=== PATIENT | female | born 1995 | race Caucasian/White ===

== ENCOUNTER → 2019-07-16 10:43 | Outpatient (BNVA) | payer SELFPAY | PROVIDERS: Family Provider Family Medicine; PCP Family Medicine; Visit Provider Specialist | DX: G40.909 Epilepsy, unspecified, not intractable, without status epilepticus (principal); F17.210 Nicotine dependence, cigarettes, uncomplicated | CPT/HCPCS: 99213 ==

== ENCOUNTER → 2019-10-30 10:30 | Outpatient (BNVA) | payer SELFPAY | PROVIDERS: Family Provider Family Medicine; PCP Family Medicine; Visit Provider Family Medicine | DX: N92.6 Irregular menstruation, unspecified (principal) | CPT/HCPCS: 82672; 83001; 84144; 84403 ==

== ENCOUNTER → 2020-06-03 15:41 | Outpatient (BNVA) | payer OTHER, SELFPAY | PROVIDERS: Family Provider Family Medicine; PCP Family Medicine; Visit Provider Nurse Practitioner Family | DX: J06.9 Acute upper respiratory infection, unspecified (principal); Z20.828 Contact with and (suspected) exposure to other viral communicable diseases | CPT/HCPCS: 87635 ==

== ENCOUNTER → 2020-10-02 15:48 | Outpatient (BNVA) | payer SELFPAY | PROVIDERS: Family Provider Family Medicine; PCP Family Medicine; Visit Provider Nurse Practitioner Family | DX: N92.6 Irregular menstruation, unspecified (principal); R10.30 Lower abdominal pain, unspecified; Z68.42 Body mass index [BMI] 45.0-49.9, adult; F17.210 Nicotine dependence, cigarettes, uncomplicated | CPT/HCPCS: 81000; 81025 ==

== ENCOUNTER → 2020-11-24 09:37 | Outpatient (BNVA) | payer MEDICAID, SELFPAY | PROVIDERS: Family Provider Family Medicine; PCP Family Medicine; Visit Provider Obstetrics & Gynecology | DX: N93.9 Abnormal uterine and vaginal bleeding, unspecified (principal); N91.3 Primary oligomenorrhea | CPT/HCPCS: 83001; 84146; 84443; 85025 ==

== ENCOUNTER → 2020-12-08 14:25 | Outpatient (BNVA) | payer MEDICAID, SELFPAY | PROVIDERS: Family Provider Family Medicine; PCP Family Medicine; Visit Provider Obstetrics & Gynecology | DX: N83.201 Unspecified ovarian cyst, right side (principal) | CPT/HCPCS: 76830 ==

== ENCOUNTER → 2020-12-16 16:18 | Outpatient (BNVA) | payer MEDICAID, SELFPAY | PROVIDERS: Family Provider Family Medicine; PCP Family Medicine | DX: M79.641 Pain in right hand (principal); S69.91XA Unspecified injury of right wrist, hand and finger(s), initial encounter; X58.XXXA Exposure to other specified factors, initial encounter | CPT/HCPCS: 73130 ==

== ENCOUNTER 2020-12-30 11:14 | Emergency (ER) | payer MEDICAID, SELFPAY ==
[2020-12-30 11:49] VITALS: BP 138/86; PULSE 69; RESP 20; TEMP 36.8; O2SAT 100; BMI 44.9
[2020-12-30 12:00] VITALS: BP 141/95; PULSE 83; RESP 16; O2SAT 99
--- NOTE | 2020-12-30 12:03 | W.ED.GENADLT ---
HPI - General Adult General: Chief complaint: Vaginal Bleeding Stated complaint: vaginal bleeding Time Seen by Provider: 12/30/20 11:59 History of Present Illness: HPI narrative: This patient is a 25-year-old female who presents to the emergency department complaint of vaginal bleeding. Patient states her periods have always been abnormal and her last period was in October. Patient states she started her period this morning went to the bathroom put in a tampon by the time she got back to bed the blood was coming around the tampon and going down her legs. She went back to the bathroom to change that tampon and she said it was just like a fluid. 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 Way for her abnormal periods. Patient does not appear to be acutely anemic but will check and evaluate for anemia with blood evaluation with CBC. Evaluate and treat further as needed. Onset (ago): hour(s) Severity: mild Associated symptoms: Deny chest pain, dyspnea, headache(s), nausea, rash, palpitations or vomiting Review of Systems General: Reports: 10 or more systems reviewed and unremarkable except in HPI and below Const: Denies: fever(s), chills, body aches or fatigue Eyes: Denies: change in vision or blurry vision ENMT: Denies: throat pain, hoarseness or mouth pain Card: Denies: chest pain, palpitations, irregular heart rhythm, edema, swelling of feet/ankles or lightheadedness Resp: Denies: dyspnea, productive cough, non-productive cough, wheezing or pain on inspiration GI: Denies: abdominal pain, nausea or vomiting : Reports: vaginal bleeding and irregular period; Denies: flank pain, difficulty voiding, dysuria, urinary frequency, urinary urgency or urinary hesitancy Musc: Denies: neck pain, back pain, extremity pain, extremity swelling, joint pain, joint swelling, joint redness, joint warmth or limited range of motion Skin/Breast: Denies: rash, pruritus, erythema or skin tenderness Neuro: Denies: headache(s), numbness in extremities or weakness in extremities Psych: Denies: anxiety or depression PFS ED PFSH: Medical History Migraine Seizures Surgical History History of cholecystectomy Family History Grandmother Diabetes maternal Hyperlipidemia maternal Hypertension maternal Stroke maternal Heart disease maternal Breast cancer great grandmother, onset unknown Mother Hypertension Heart disease Uterine cancer, Onset Age: 28 Ovarian cancer, Onset Age: 28 Denies family history of Colon cancer Clotting disorder Anesthesia complication Bleeding disorder Thyroid condition Social History Smoking and tobacco status: current every day smoker cigarettes [ Other cigarette details: smokes on weekends only ] Second hand smoke exposure: Yes Smoking risk assessment/counseling performed?: Yes Alcohol intake: current Alcohol intake frequency: holidays/special occasions only Alcohol type: wine and hard liquor Desire information about alcohol rehabilitation?: No Counseling given: Yes Desire information about substance/drug rehabilitation?: No Counseling given: Yes Other details last substance use: last used methamphetamines Adopted: Yes Caregiver/support person: No Lives independently: Yes Household members: significant other Housing: House Marital status: Single Number of children: 0 Highest education level completed: High School Graduate service: No Current occupational status: employed History of recent travel: No Physical Exam Const: COMMON NORMALS: no acute distress, average body habitus, patient oriented x3, no limitations, healthy appearing, alert and well nourished HENMT: COMMON NORMALS: normocephalic, atraumatic, hearing grossly normal bilaterally, external ears normal, EAC's normal, TM's normal bilaterally, Normal external nose present, Normal nasal mucous membranes and turbinates present, moist oral mucous membranes, oropharynx normal, dentition normal and gingiva normal HEAD & SCALP: normocephalic and atraumatic NOSE: Normal external nose present and Normal nasal mucous membranes and turbinates present EXTERNAL EAR: Yes external ears normal EXTERNAL AUDITORY CANAL: EAC's normal TYMPANIC MEMBRANE: TM's normal bilaterally Neck/C-Spine: COMMON NORMALS: full ROM, no lymphadenopathy, supple, no meningeal signs, no JVD, Thyroid normal and No carotid bruits THYROID: Thyroid normal Chest: COMMONS NORMALS: normal inspection of the chest, normal palpation of entire chest wall, normal inspection of the breasts and normal palpation of the breasts Breast/axilla inspection: Yes normal inspection of the breasts BREAST/AXILLA PALPATION: Yes normal palpation of the breasts Resp: COMMON NORMALS: normal respiratory effort, No retractions, No use of accessory muscles, clear to auscultation bilaterally and percussion normal AUSCULTATION: clear to auscultation bilaterally PERCUSSION: percussion normal Cardio: COMMON NORMALS: no JVD, regular rate, regular rhythm, S1 normal heart sound present, S2 normal heart sound present, No gallops present (Cardio), No clicks present (Cardio), No murmurs present (Cardio), No rub (Cardio) and Peripheral pulses 2+ throughout RATE: regular rate RHYTHM: regular rhythm HEART SOUNDS: S1 normal heart sound present and S2 normal heart sound present PERIPHERAL PULSES: Peripheral pulses 2+ throughout GI: COMMON NORMALS: Normal to inspection, nondistended, normoactive bowel sounds present, Soft to palpation, non-tender, No hepatosplenomegaly present, no masses and no bruits PALPATION: Yes Soft to palpation and Yes No hepatosplenomegaly present : COMMON NORMALS: Yes no CVA tenderness, Yes normal external appearance, Yes normal appearance of the vagina, Yes normal appearance of the cervix, Yes normal bimanual exam, Yes No adnexal tenderness and Yes no masses BLADDER/KIDNEY EXAM: Yes no CVA tenderness BIMANUAL EXAM - VAGINA & UTERUS: Yes normal bimanual exam Back/Pelvis: COMMON NORMALS: no CVA tenderness, thoracic and lumbar spine normal to inspection, no thoracic nor lumbar tenderness, thoraco-lumbar ROM normal and straight leg raise negative bilaterally Extremity: COMMON NORMALS: normal to inspection, full ROM, capillary refill normal, no joint enlargement, no clubbing, cyanosis or edema, no calf tenderness and no pedal edema Neuro: COMMON NORMALS: patient oriented x3 SENSORIUM/ORIENTATION: Yes alert MENINGEAL SIGNS: Yes no meningeal signs Course Reevaluation(s): Reevaluation #1: Negative evaluation in the emergency department for any acute findings. Patient has a long history of abnormal periods of vaginal bleeding. Patient is has heavy bleeding with this Period.. Encourage p.o. fluids. Change tampons frequently as needed. Follow-up with your STEAM FITTER SUPERVISOR as needed for excessive abnormal vaginal bleeding Time: 13:28 Vital Signs: Vital signs: Vital Signs Temperature 98.2 F 12/30/20 11:49 Pulse Rate 83 12/30/20 12:00 Respiratory Rate 16 12/30/20 12:00 Blood Pressure 141/95 12/30/20 12:00 Pulse Oximetry 99 12/30/20 12:00 MDM - General Adult MDM Narrative: Medical decision making narrative: This patient is a 25-year-old female who presents to the emergency department complaint of vaginal bleeding. Patient states her periods have always been abnormal and her last period was in October. Patient states she started her period this morning went to the bathroom put in a tampon by the time she got back to bed the blood was coming around the tampon and going down her legs. She went back to the bathroom to change that tampon and she said it was just like a fluid. 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 Way for her abnormal periods. Patient does not appear to be acutely anemic but will check and evaluate for anemia with blood evaluation with CBC. Evaluate and treat further as needed. Negative evaluation in the emergency department for any acute findings. Patient has a long history of abnormal periods of vaginal bleeding. Patient is has heavy bleeding with this Period.. Encourage p.o. fluids. Change tampons frequently as needed. Follow-up with your STEAM [employer]TER SUPERVISOR as needed for excessive abnormal vaginal bleeding Lab Data: Labs: Lab Results 12/30/20 12/30/20 12/30/20 Range/Units 12:13 12:13 13:08 WBC 8.5 (4.0-10.0) 10^3/ uL RBC 5.17 (4.1-5.3) 10^6/u L Hgb 13.3 (11.5-15.3) g/dL Hct 43.2 (37.0-47.0) % MCV 83.6 (81-99) fl MCH 25.7 L (28.0-34.0) pg MCHC 30.8 (30.0-36.0) g/dL RDW 13.4 (12.1-15.1) % Plt Count 409 H (130-400) 10^3/c mm MPV 9.5 (7.4-10.4) fL Neut % (Auto) 68.7 % Lymph % (Auto) 22.5 % [place] % (Auto) 5.3 % Eos % (Auto) 2.4 % Baso % (Auto) 0.9 % Neut # (Auto) 5.82 (1.8-7.7) 10^3/u L Lymph # (Auto) 1.9 (0.8-4.8) 10^3/u L [place] # (Auto) 0.5 (0.2-0.9) 10^3/u L Eos # (Auto) 0.2 (0.0-0.8) 10^3/u L Baso # (Auto) 0.1 (0.0-0.1) 10^3/u L Nucleated RBC % (a uto) 0 % Nucleated RBCs # 0.0 /100WBC Sodium 138 (136-145) mmol/L Potassium 4.0 (3.5-5.1) mmol/L Chloride 107 (98-107) mmol/L Carbon Dioxide 23 (22-29) mmol/L Anion Gap 12.0 (5-19) BUN 8 (6-20) mg/dL Creatinine 0.6 (0.5-0.9) mg/dL GFR Calculation 119.9 (90-130) mL/min Glucose 72 (65-115) mg/dL Calculated Osmolal ity 283 L (285-295) mOsm/k g Calcium 8.9 (8.5-10.5) mg/dL HCG, Qual Negative (Negative) Discharge Plan Discharge Patient Disposition: Home Clinical Impression: Abnormal vaginal bleeding Condition: Stable Prescriptions: No Action gabapentin 100 mg capsule 200 mg PO DAILY Qty: 60 RF: 5 medroxyprogesterone 10 mg tablet 10 mg PO DAILY 10 Days Qty: 10 RF: 0 ibuprofen 800 mg tablet 800 mg PO TID PRN (Reason: pain) Qty: 42 RF: 0 topiramate 50 mg tablet 50 mg PO BID 30 Days Qty: 60 RF: 2 sumatriptan succinate 50 mg tablet See Rx Instructions PO .COMPLEX Qty: 10 RF: 2 Discharge Orders: Discharge ED (Routine); Ordered 12/30/20 Ordered By: Dread Oneal Referrals: Roxana Strong FNP-C [Primary Care Provider] - Discharge Diet: Advance as tolerated Discharge Activity: Resume usual activity Patient Instructions: Opioid Safety Activity Restrictions/Additional Instructions: Encourage p.o. fluids. Change tampons frequently as needed. Follow-up with your STEAM [employer]TER SUPERVISOR as needed for excessive abnormal vaginal bleeding Coding Level of Care Code ED Talent Development Director for Chg Fwd Exam Comprehensive
[2020-12-30 12:18] LABS: Basophils # 0.1 10^3/uL (0.0-0.1); Basophils % 0.9 %; Eosinophils # 0.2 10^3/uL (0.0-0.8); Eosinophils % 2.4 %; Hematocrit 43.2 % (37.0-47.0); Hemoglobin 13.3 g/dL (11.5-15.3); Lymphocytes # 1.9 10^3/uL (0.8-4.8); Lymphocytes % 22.5 %; Mean Corpuscular HGB Conc 30.8 g/dL (30.0-36.0); Mean Corpuscular Hemoglobin 25.7 pg (28.0-34.0); Mean Corpuscular Volume 83.6 fl (81-99); Mean Platelet Volume 9.5 fL (7.4-10.4); Monocytes # 0.5 10^3/uL (0.2-0.9); Monocytes % 5.3 %; Neutrophils # 5.82 10^3/uL (1.8-7.7); Neutrophils % 68.7 %; Nucleated Red Blood Cells % 0 %; Platelet Count 409 10^3/cmm (130-400); Red Blood Count 5.17 10^6/uL (4.1-5.3); Red Cell Distribution Width 13.4 % (12.1-15.1); White Blood Count 8.5 10^3/uL (4.0-10.0)
[2020-12-30 12:43] LABS: Blood Urea Nitrogen 8 mg/dL (6-20); Calcium 8.9 mg/dL (8.5-10.5); Carbon Dioxide 23 mmol/L (22-29); Chloride 107 mmol/L (98-107); Glomerular Filtration Rate 119.9 mL/min (90-130); Glucose 72 mg/dL (65-115); Osmolality Calculated 283 mOsm/kg (285-295); Sodium 138 mmol/L (136-145)
[2020-12-30 13:12] LABS: HCG Qualitative Urine. Negative (Negative)
[2020-12-30 13:42] LABS: Add Urine Microscopic? YES; Bacteria Urine TRACE /hpf; Bilirubin Urine Neg (Negative); Blood Urine 3+ (Negative); Glucose Urine UA Norm (Normal); Ketones Urine Negative (Negative); Leukocyte Esterase Urine Trace (Negative); Nitrate Urine Negative (Negative); Protein Urine Neg (Negative); RBC Urine 25-40 /hpf (0-2); Urine Appearance SL Hazy (CLEAR); Urine Color Yellow (Yellow); Urobilinogen Urine 1 mg/dL (Negative); pH Urine 5 (5-7)
[2020-12-30 13:43] LABS: Add Urine Culture? Yes
[2020-12-30 13:47] VITALS: BP 135/86; PULSE 57; RESP 18; O2SAT 99
== END 2020-12-30 13:47 | disposition home or self-care (01) ==
PROVIDERS: Emergency Provider Emergency Medicine; PCP Nurse Practitioner Family
DX: N93.9 Abnormal uterine and vaginal bleeding, unspecified (principal); F17.210 Nicotine dependence, cigarettes, uncomplicated
CPT/HCPCS: 80048; 81001; 81025; 85025; 87086; 99282

== ENCOUNTER → 2021-01-12 14:24 | Outpatient (BNVA) | payer MEDICAID, SELFPAY | PROVIDERS: PCP Nurse Practitioner Family; Visit Provider Family Medicine | DX: M25.561 Pain in right knee (principal); S83.91XA Sprain of unspecified site of right knee, initial encounter; X58.XXXA Exposure to other specified factors, initial encounter | CPT/HCPCS: 73562 ==

== ENCOUNTER → 2021-09-07 15:05 | Outpatient (BNVA) | payer BC, MEDICAID, SELFPAY | PROVIDERS: PCP Nurse Practitioner Family; Visit Provider Nurse Practitioner | DX: N92.0 Excessive and frequent menstruation with regular cycle (principal) | CPT/HCPCS: 80053; 81000; 85025 ==

== ENCOUNTER → 2022-02-09 17:14 | Outpatient (BNVA) | payer BC, MEDICAID, SELFPAY | PROVIDERS: PCP Nurse Practitioner Family; Visit Provider Nurse Practitioner Family | DX: R45.86 Emotional lability (principal); G43.909 Migraine, unspecified, not intractable, without status migrainosus; R56.9 Unspecified convulsions; J45.909 Unspecified asthma, uncomplicated; N92.0 Excessive and frequent menstruation with regular cycle; F32.A Depression, unspecified; F41.9 Anxiety disorder, unspecified; G40.909 Epilepsy, unspecified, not intractable, without status epilepticus; E66.3 Overweight; Z68.43 Body mass index [BMI] 50.0-59.9, adult | CPT/HCPCS: 80053; 80061; 84443 ==

== ENCOUNTER → 2022-05-30 15:07 | Outpatient (BNVA) | payer BC, MEDICAID, SELFPAY | PROVIDERS: PCP Nurse Practitioner Family; Visit Provider Nurse Practitioner Family | DX: J45.909 Unspecified asthma, uncomplicated (principal); R06.02 Shortness of breath; H61.23 Impacted cerumen, bilateral; F41.9 Anxiety disorder, unspecified; F32.A Depression, unspecified; Z68.43 Body mass index [BMI] 50.0-59.9, adult; R60.9 Edema, unspecified; R56.9 Unspecified convulsions | CPT/HCPCS: 69209; 71046; 80053; 80061 ==

== ENCOUNTER 2022-08-06 11:26 | Emergency (ER) | payer BC, MEDICAID, SELFPAY ==
[2022-08-06 11:40] VITALS: BP 125/84; PULSE 73; RESP 15; TEMP 36.8; O2SAT 98; BMI 49.5
--- NOTE | 2022-08-06 12:10 | W.ED.DENTAL ---
Documented by User: NICOLASA Ruiz 08/06/22 12:16 HPI - Dental/Oral General: Chief complaint: Dental/Oral Stated complaint: tooth pain Time Seen by Provider: 08/06/22 11:30 History of Present Illness: Patient is a 26-year-old female that presents to the emergency department with complaints of dental pain. Onset of symptoms sometime ago. Patient states teeth have been progressively worsening to the point that her [id number] remedies no longer help. Patient has not seen a dentist. Associated symptoms: Denies ear or mastoid pain, fever(s) or odynophagia Review of Systems General: Reports: 10 or more systems reviewed and unremarkable except in HPI and below Const: Denies: fever(s), chills, change in appetite, change in weight, fatigue or malaise Eyes: Denies: change in vision, eye discomfort, eye discharge or eye redness ENMT: Reports: oral sores, dental pain and other (Foul taste and odor to breath); Denies: throat pain, enlarged tonsils, odynophagia, hoarseness, ear or mastoid pain, ear discharge, change in hearing, tinnitus, nasal discharge, nasal congestion, post nasal drip or sinus pain Card: Denies: chest pain, palpitations, irregular heart rhythm, edema, dyspnea on exertion, orthopnea or leg pain with exertion Resp: Denies: dyspnea, productive cough, non-productive cough, wheezing, stridor or chest congestion GI: Denies: abdominal pain, nausea, vomiting, dysphagia, diarrhea, constipation, bloating, GI cramping or hematochezia : Denies: flank pain, difficulty voiding, dysuria, urinary frequency, urinary urgency, urinary hesitancy, oliguria or hematuria Musc: Denies: neck pain, back pain, extremity pain, joint pain, joint swelling, joint redness, joint warmth or muscle weakness Skin/Breast: Denies: rash, pruritus, erythema, photosensitivity or new lesions Neuro: Denies: headache(s), numbness in extremities, weakness in extremities, sensory changes, lack of coordination, difficulty walking, frequent falls, dizziness, confusion, Slurred speech present, difficulty communicating thoughts, seizure-like activity or involuntary movements Endo: Denies: polyuria, polydipsia or tired all the time Kory/Lymph: Denies: easy bruising or easy bleeding PFSH ED PFSH: Medical History Asthma BMI 50.0-59.9, adult Migraine Personal history of nicotine dependence Seizures Surgical History History of cholecystectomy Family History Grandmother Diabetes maternal Hyperlipidemia maternal Hypertension maternal Stroke maternal Heart disease maternal Breast cancer great grandmother, onset unknown Mother Hypertension Heart disease Uterine cancer, Onset Age: 28 Ovarian cancer, Onset Age: 26 Denies family history of Colon cancer Clotting disorder Anesthesia complication Bleeding disorder Thyroid condition Social History Smoking and tobacco status: never smoked Second hand smoke exposure: No Smoking risk assessment/counseling performed?: No Alcohol intake: current Alcohol intake frequency: holidays/special occasions only Alcohol type: wine and hard liquor Desire information about alcohol rehabilitation?: No Counseling given: No Desire information about substance/drug rehabilitation?: No Counseling given: No Other details last substance use: last used methamphetamines Adopted: No Caregiver/support person: No Lives independently: Yes Household members: significant other Housing: House Marital status: Single Number of children: 0 service: No Current occupational status: employed Current occupation: [employer] Current occupational exposures/hazards: No Current gender identity: Female Female Reproductive History: Para: 0 Spontaneous abortions: Yes (7) Physical Exam Const: COMMON NORMALS: no acute distress, patient oriented x3 and alert GENERAL APPEARANCE: cooperative ORIENTATION/CONSCIOUSNESS: Yes awake, Yes oriented to person, Yes oriented to place and Yes oriented to time HENMT: COMMON NORMALS: normocephalic and atraumatic HEAD & SCALP: normocephalic and atraumatic FACE & SINUS: normal facial exam MOUTH: lip normal, moist mucous membranes abnormal and malodorous breath TEETH & GINGIVA IMAGES: 1. Necrotizing gingiva stomatitis. Very poor dentition 2. Necrotizing gingiva stomatitis. Very poor dentition THROAT: posterior oropharynx normal Eye: COMMON NORMALS: Equal, round and reactive pupils present, EOMs intact bilaterally, conjunctivae normal and no scleral icterus GENERAL EYE: appearance normal, both eyes and all related structures ALIGNMENT: Yes alignment normal PERIORBITAL: periorbital findings normal CONJUNCTIVA: Yes conjunctivae normal PUPIL: Yes Equal, round and reactive pupils present Neck/C-Spine: COMMON NORMALS: full ROM GENERAL: Yes normal visual inspection Lymph: LYMPHATIC: no lymphadenopathy noted Chest: COMMONS NORMALS: normal inspection of the chest Breast/axilla inspection: Yes no chest deformity, asymmetry, normal contours, no nodules, masses, tenderness Resp: COMMON NORMALS: normal respiratory effort, No retractions, No use of accessory muscles and clear to auscultation bilaterally EFFORT & INSPECTION: Yes able to speak in complete sentences and Yes symmetric chest movement AUSCULTATION: clear to auscultation bilaterally Cardio: COMMON NORMALS: regular rate, regular rhythm and Peripheral pulses 2+ throughout RATE: regular rate RHYTHM: regular rhythm PERIPHERAL PULSES: Peripheral pulses 2+ throughout GI: COMMON NORMALS: Normal to inspection, nondistended, normoactive bowel sounds present, Soft to palpation, non-tender and No hepatosplenomegaly present INSPECTION: Yes normal to inspection AUSCULTATION: Yes normoactive bowel sounds PALPATION: Yes Soft to palpation and Yes No hepatosplenomegaly present RECTAL EXAM: deferred Extremity: COMMON NORMALS: normal to inspection GENERAL: Yes normal exam except as noted Neuro: COMMON NORMALS: patient oriented x3 SENSORIUM/ORIENTATION: Yes alert, Yes oriented to person, Yes oriented to place and Yes oriented to time CRANIAL NERVES: Yes CN normal except as noted Psych: COMMON NORMALS: mental status grossly normal, Normal thought process present, cooperative, activity/motor behavior normal, denies homicidal ideation and denies suicidal ideation THOUGHT PROCESS: Normal thought process present Skin: COMMON NORMALS: no rashes or lesions noted, no wounds and turgor normal GENERAL SKIN EXAM: no rashes or lesions noted and turgor normal Course Vital Signs: Vital signs: Vital Signs Temperature 98.2 F 08/06/22 11:40 Pulse Rate 73 08/06/22 11:40 Respiratory Rate 15 08/06/22 11:40 Blood Pressure 125/84 08/06/22 11:40 Pulse Oximetry 98 08/06/22 11:40 Oxygen Delivery Me thod 08/06/22 11:40 MDM - Dental/Oral Medical Decision Making Patient was treated in the emergency department for dental pain. Patient does have areas of decay throughout her mouth and a indurated erythematous area upper part of her mandible. No fluctuance or drainable abscess. Going to treat her with clindamycin due to her allergies and put her on chlorhexidine mouthwash twice a day. Since her [id number] remedies are no longer working to help with her pain and going to send her with a Toradol patient was also given a list of dental resources. She is to follow-up and establish care. Discharge Plan Discharge Patient Disposition: Home Clinical Impression: Acute necrotizing ulcerative gingivitis, Dental caries, Abscess, dental Condition: Stable Prescriptions: New Cleocin HCl 150 mg capsule 450 mg PO TID 7 Days Qty: 63 0RF Peridex 0.12 % mouthwash 15 ml mucous membrane BID Qty: 1200 0RF ketorolac 10 mg tablet 10 mg PO Q8H 5 Days Qty: 15 0RF No Action gabapentin 100 mg capsule 100 mg PO TID 30 Days Qty: 90 0RF topiramate 50 mg tablet 50 mg PO BID 30 Days Qty: 60 3RF Rx Instructions: Take one tablet twice daily. medroxyprogesterone [Depo-Provera] 150 mg/mL syringe 150 mg IM .q3 months Qty: 1 3RF prazosin 1 mg capsule 1 mg PO .qhs 30 Days Qty: 30 2RF Ozempic 0.25 mg or 0.5 mg(2 mg/1.5 mL) pen injector 0.5 mg SUBCUT .weekly 28 Days Qty: 1.5 0RF hydrochlorothiazide 25 mg tablet 25 mg PO DAILY 30 Days Qty: 30 3RF albuterol sulfate [Ventolin HFA] 90 mcg/actuation HFA aerosol inhaler 2 puff inhalation 6XD PRN (Reason: shortness of breath or wheezing) Qty: 8.5 1RF Discharge Orders: Discharge ED (Routine); Ordered 08/06/22 Ordered By: Olayinka Walls McTeer Referrals: Mary Kay Blount NP [Primary Care Provider] - Discharge Diet: Advance as tolerated Discharge Activity: Resume usual activity Patient Instructions: Dental Abscess (ED), Trench Mouth (ED), Gingivostomatitis (ED), Pain Management Activity Restrictions/Additional Instructions: Please take the medications as prescribed Please follow-up with a dentist. I have provided you with a list of dental resources in [place]. Coding Level of Care Code ED Kindergarten Teacher for Chg Fwd Documented by User: Leo Danielson DO 08/06/22 13:33 HPI - Dental/Oral General: Chief complaint: Dental/Oral Stated complaint: tooth pain Time Seen by Provider: 08/06/22 11:30 PFSH ED PFSH: Medical History Asthma BMI 50.0-59.9, adult Migraine Personal history of nicotine dependence Seizures Surgical History History of cholecystectomy Family History Grandmother Diabetes maternal Hyperlipidemia maternal Hypertension maternal Stroke maternal Heart disease maternal Breast cancer great grandmother, onset unknown Mother Hypertension Heart disease Uterine cancer, Onset Age: 28 Ovarian cancer, Onset Age: 26 Denies family history of Colon cancer Clotting disorder Anesthesia complication Bleeding disorder Thyroid condition Social History Smoking and tobacco status: never smoked Second hand smoke exposure: No Smoking risk assessment/counseling performed?: No Alcohol intake: current Alcohol intake frequency: holidays/special occasions only Alcohol type: wine and hard liquor Desire information about alcohol rehabilitation?: No Counseling given: No Desire information about substance/drug rehabilitation?: No Counseling given: No Other details last substance use: last used methamphetamines Adopted: No Caregiver/support person: No Lives independently: Yes Household members: significant other Housing: House Marital status: Single Number of children: 0 service: No Current occupational status: employed Current occupation: [employer] Current occupational exposures/hazards: No Current gender identity: Female Physical Exam HENMT: TEETH & GINGIVA IMAGES: 1. Necrotizing gingiva stomatitis. Very poor dentition 2. Necrotizing gingiva stomatitis. Very poor dentition Course Vital Signs: Vital signs: Vital Signs Temperature 98.2 F 08/06/22 11:40 Pulse Rate 73 03/25/23 11:40 Respiratory Rate 15 08/06/22 11:40 Blood Pressure 125/84 08/06/22 11:40 Pulse Oximetry 98 08/06/22 11:40 Oxygen Delivery Me thod 08/06/22 11:40 MDM - Dental/Oral Medical Decision Making Patient was treated in the emergency department for dental pain. Patient does have areas of decay throughout her mouth and a indurated erythematous area upper part of her mandible. No fluctuance or drainable abscess. Going to treat her with clindamycin due to her allergies and put her on chlorhexidine mouthwash twice a day. Since her [id number] remedies are no longer working to help with her pain and going to send her with a Toradol patient was also given a list of dental resources. She is to follow-up and establish care. Chart reviewed and patient discussed with midlevel. Agree with assessment and plan. Discharge Plan Discharge Patient Disposition: Home Clinical Impression: Acute necrotizing ulcerative gingivitis, Dental caries, Abscess, dental Condition: Stable Prescriptions: New Cleocin HCl 150 mg capsule 450 mg PO TID 7 Days Qty: 63 0RF Peridex 0.12 % mouthwash 15 ml mucous membrane BID Qty: 1200 0RF ketorolac 10 mg tablet 10 mg PO Q8H 5 Days Qty: 15 0RF No Action gabapentin 100 mg capsule 100 mg PO TID 30 Days Qty: 90 0RF topiramate 50 mg tablet 50 mg PO BID 30 Days Qty: 60 3RF Rx Instructions: Take one tablet twice daily. medroxyprogesterone [Depo-Provera] 150 mg/mL syringe 150 mg IM .q3 months Qty: 1 3RF prazosin 1 mg capsule 1 mg PO .qhs 30 Days Qty: 30 2RF Ozempic 0.25 mg or 0.5 mg(2 mg/1.5 mL) pen injector 0.5 mg SUBCUT .weekly 28 Days Qty: 1.5 0RF hydrochlorothiazide 25 mg tablet 25 mg PO DAILY 30 Days Qty: 30 3RF albuterol sulfate [Ventolin HFA] 90 mcg/actuation HFA aerosol inhaler 2 puff inhalation 6XD PRN (Reason: shortness of breath or wheezing) Qty: 8.5 1RF Discharge Orders: Discharge ED (Routine); Ordered 08/06/22 Ordered By: Olayinka Brooks Referrals: Mary Kay Blount NP [Primary Care Provider] - Discharge Diet: Advance as tolerated Discharge Activity: Resume usual activity Patient Instructions: Dental Abscess (ED), Trench Mouth (ED), Gingivostomatitis (ED), Pain Management Activity Restrictions/Additional Instructions: Please take the medications as prescribed Please follow-up with a dentist. I have provided you with a list of dental resources in [place]. Coding Level of Care Code ED Kindergarten Teacher for Jarrod Gunderson
== END 2022-08-06 12:31 | disposition home or self-care (01) ==
PROVIDERS: Emergency Provider Nurse Practitioner; PCP Nurse Practitioner Family
DX: A69.1 Other Vincent's infections (principal); K04.7 Periapical abscess without sinus; J45.909 Unspecified asthma, uncomplicated
CPT/HCPCS: 99284

== ENCOUNTER 2022-09-04 06:53 | Emergency (ER) | payer BC, MEDICAID, SELFPAY ==
[2022-09-04 07:00] VITALS: BP 167/109; PULSE 95; RESP 16; TEMP 35.8; O2SAT 99; BMI 44.9
[2022-09-04 07:05] VITALS: BP 167/109; PULSE 84; O2SAT 97
--- NOTE | 2022-09-04 07:26 | CTR_ITS ---
PROCEDURE INFORMATION: Exam: CT Head Without Contrast Exam date and time: 09/04/2022 7:45 AM Age: 26 years old Clinical indication: Fall with blunt trauma. Loss of consciousness for 30 minutes or less. Head trauma. TECHNIQUE: Imaging protocol: Computed tomography of the head without contrast. Radiation optimization: All CT scans at this facility use at least one of these dose optimization techniques: automated exposure control; mA and/or kV adjustment per patient size (includes targeted exams where dose is matched to clinical indication); or iterative reconstruction. REPORTING DATA: Count of CT and Cardiac NM exams in prior 12 months: This patient has received 0 known CTs and 0 known cardiac nuclear medicine studies in the 12 months prior to the current study. COMPARISON: No relevant prior studies available. RADIATION DOSE METRICS: Total DLP (mGy-cm): 1073.78 FINDINGS: Brain: No acute intracranial hemorrhage. No mass, mass effect or midline shift. There is no evidence of acute large vessel infarct. The subcortical and periventricular white matter is normal in attenuation. The posterior fossa is grossly unremarkable; however, it is partially obscurred by beam hardening artifact. Cerebral ventricles: The ventricles are normal in configuration. Paranasal sinuses: The visualized paranasal sinuses are clear. Mastoid air cells: No mastoid effusion. Orbital cavities: The visualized orbits are unremarkable. Bones/joints: No acute fracture is seen. Soft tissues: No significant scalp soft tissue swelling. CT/CT head wo con* [id number] IMPRESSION: No acute intracranial abnormality.
[2022-09-04] MEDS: acetaminophen 500 mg Tablet 1000 MG PO (07:31)
--- NOTE | 2022-09-04 07:31 | ED_ITS ---
HPI - Head Injury General: Chief complaint: Head Injury Stated complaint: hit head Time Seen by Provider: 09/04/22 07:22 History of Present Illness: Yaz Mckenzie is a 26-year-old female that presents to the emergency department with reports of a fall in which she struck the left side of her head approximately 2 days ago. She reports she definitely had a loss of consciousness and nausea and vomiting once alert. She estimates her LOC is 15 to 20 minutes. Patient is alert and oriented now. She does report a history of seizures and she is on topiramate and gabapentin. Patient has not had any seizure activity but reports shaking a lot . She also has a history of chronic bronchitis and asthma. Patient does use tobacco/nicotine. Associated symptoms: Deny confusion, nausea, neck pain or vomiting Review of Systems General: Reports: 10 or more systems reviewed and unremarkable except in HPI and below Const: Denies: fever(s), chills, change in appetite, change in weight, fatigue or malaise Eyes: Denies: change in vision, eye discomfort, eye discharge or eye redness ENMT: Denies: throat pain, enlarged tonsils, odynophagia, hoarseness, ear or mastoid pain, ear discharge, change in hearing, tinnitus, nasal discharge, nasal congestion, post nasal drip or sinus pain Card: Denies: chest pain, palpitations, irregular heart rhythm, edema, dyspnea on exertion, orthopnea or leg pain with exertion Resp: Denies: dyspnea, productive cough, non-productive cough, wheezing, stridor or chest congestion GI: Denies: abdominal pain, nausea, vomiting, dysphagia, diarrhea, constipation, bloating, GI cramping or hematochezia : Denies: flank pain, difficulty voiding, dysuria, urinary frequency, urinary urgency, urinary hesitancy, oliguria or hematuria Musc: Denies: neck pain, back pain, extremity pain, joint pain, joint swelling, joint redness, joint warmth or muscle weakness Skin/Breast: Denies: rash, pruritus, erythema, photosensitivity or new lesions Neuro: Denies: headache(s), numbness in extremities, weakness in extremities, sensory changes, lack of coordination, difficulty walking, frequent falls, dizziness, confusion, Slurred speech present, difficulty communicating thoughts, seizure-like activity or involuntary movements Endo: Denies: polyuria, polydipsia or tired all the time Kory/Lymph: Denies: easy bruising or easy bleeding PFSH ED PFSH: Medical History Asthma BMI 50.0-59.9, adult Migraine Personal history of nicotine dependence Seizures Surgical History History of cholecystectomy Family History Grandmother Diabetes maternal Hyperlipidemia maternal Hypertension maternal Stroke maternal Heart disease maternal Breast cancer great grandmother, onset unknown Mother Hypertension Heart disease Uterine cancer, Onset Age: 28 Ovarian cancer, Onset Age: 26 Denies family history of Colon cancer Clotting disorder Anesthesia complication Bleeding disorder Thyroid condition Social History Smoking and tobacco status: never smoked Second hand smoke exposure: No Smoking risk assessment/counseling performed?: No Alcohol intake: current Alcohol intake frequency: holidays/special occasions only Alcohol type: wine and hard liquor Desire information about alcohol rehabilitation?: No Counseling given: No Substance/Drug Use: unknown Desire information about substance/drug rehabilitation?: No Counseling given: No Other details last substance use: last used methamphetamines Adopted: No Caregiver/support person: No Lives independently: Yes Household members: significant other Housing: House Marital status: Single Number of children: 0 service: No Current occupational status: employed Current occupation: [employer] Current occupational exposures/hazards: No Do you think of yourself as: Straight/Heterosexual Current gender identity: Female Female Reproductive History: Para: 0 Spontaneous abortions: Yes (7) Physical Exam Const: COMMON NORMALS: no acute distress, patient oriented x3 and alert GENERAL APPEARANCE: cooperative ORIENTATION/CONSCIOUSNESS: Yes awake, Yes oriented to person, Yes oriented to place and Yes oriented to time HENMT: COMMON NORMALS: normocephalic and atraumatic HEAD & SCALP: normocephalic and atraumatic FACE & SINUS: normal facial exam MOUTH: Normal oral and palatal mucosa present THROAT: posterior oropharynx normal Eye: COMMON NORMALS: Equal, round and reactive pupils present, EOMs intact bilaterally, conjunctivae normal and no scleral icterus GENERAL EYE: appearance normal, both eyes and all related structures ALIGNMENT: Yes alignment normal PERIORBITAL: periorbital findings normal CONJUNCTIVA: Yes conjunctivae normal PUPIL: Yes Equal, round and reactive pupils present Neck/C-Spine: COMMON NORMALS: full ROM GENERAL: Yes normal visual inspection Lymph: LYMPHATIC: no lymphadenopathy noted Chest: COMMONS NORMALS: normal inspection of the chest Breast/axilla inspection: Yes no chest deformity, asymmetry, normal contours, no nodules, masses, tenderness Resp: COMMON NORMALS: normal respiratory effort, No retractions, No use of accessory muscles and clear to auscultation bilaterally EFFORT & INSPECTION: Yes able to speak in complete sentences and Yes symmetric chest movement AUSCULTATION: clear to auscultation bilaterally Cardio: COMMON NORMALS: regular rate, regular rhythm and Peripheral pulses 2+ throughout RATE: regular rate RHYTHM: regular rhythm PERIPHERAL PULSES: Peripheral pulses 2+ throughout GI: COMMON NORMALS: Normal to inspection, nondistended, normoactive bowel sounds present, Soft to palpation, non-tender and No hepatosplenomegaly present INSPECTION: Yes normal to inspection AUSCULTATION: Yes normoactive bowel sounds PALPATION: Yes Soft to palpation and Yes No hepatosplenomegaly present RECTAL EXAM: deferred Extremity: COMMON NORMALS: normal to inspection GENERAL: Yes normal exam except as noted Neuro: COMMON NORMALS: patient oriented x3 SENSORIUM/ORIENTATION: Yes alert, Yes oriented to person, Yes oriented to place and Yes oriented to time CRANIAL NERVES: Yes CN normal except as noted Psych: COMMON NORMALS: mental status grossly normal, Normal thought process present, cooperative, activity/motor behavior normal, denies homicidal ideation and denies suicidal ideation THOUGHT PROCESS: Normal thought process present Skin: COMMON NORMALS: no rashes or lesions noted, no wounds and turgor normal GENERAL SKIN EXAM: no rashes or lesions noted and turgor normal Course Vital Signs: Vital signs: Vital Signs Temperature 96.5 F L 09/04/22 07:00 Pulse Rate 84 09/04/22 07:05 Respiratory Rate 16 09/04/22 07:00 Blood Pressure 167/109 09/04/22 07:05 Pulse Oximetry 97 09/04/22 07:05 Oxygen Delivery Me thod Room Air 09/04/22 07:00 MDM - Head Injury Medcial Decision Making Differential diagnosis include concussion, contusion, ICH. Patient underwent CT imaging of the head which revealed no abnormal intracranial process. I treated her pain initially with acetaminophen 1 g p.o. and then 60 mg of Toradol IM. Patient has a concussion. I have advised her on concussion management. She needs to follow-up with her neurologist. Patient is to return to the emergency department for new, concerning, worsening symptom, questions answered Lab Data Radiology Impressions Head CT 09/04/22 07:26 IMPRESSION: No acute intracranial abnormality. Discharge Plan Discharge Patient Disposition: Home Clinical Impression: Closed head injury, Concussion with loss of consciousness Condition: Stable Prescriptions: No Action gabapentin 100 mg capsule 100 mg PO TID 30 Days Qty: 90 0RF topiramate 50 mg tablet 50 mg PO BID 30 Days Qty: 60 3RF Rx Instructions: Take one tablet twice daily. medroxyprogesterone [Depo-Provera] 150 mg/mL syringe 150 mg IM .q3 months Qty: 1 3RF prazosin 1 mg capsule 1 mg PO .qhs 30 Days Qty: 30 2RF Ozempic 0.25 mg or 0.5 mg(2 mg/1.5 mL) pen injector 0.5 mg SUBCUT .weekly 28 Days Qty: 1.5 0RF hydrochlorothiazide 25 mg tablet 25 mg PO DAILY 30 Days Qty: 30 3RF albuterol sulfate [Ventolin HFA] 90 mcg/actuation HFA aerosol inhaler 2 puff inhalation 6XD PRN (Reason: shortness of breath or wheezing) Qty: 8.5 1RF Peridex 0.12 % mouthwash 15 ml mucous membrane BID Qty: 1200 0RF Discharge Orders: Discharge ED (Routine); Ordered 09/04/22 Ordered By: Olayinka Brooks Referrals: Mary Kay Blount NP [Primary Care Provider] - Patient Instructions: Pain Management, Concussion (ED), Concussion/Head Injury - Adult Activity Restrictions/Additional Instructions: Please return to the emergency department for new, concerning, worsening symptoms. Coding Level of Care Code ED Experience Design Director for Jarrod Gunderson
[2022-09-04] MEDS: ketorolac 60 mg/2 mL INJ IM (08:21)
[2022-09-04 08:23] VITALS: BP 143/81; PULSE 77; RESP 16; O2SAT 100
[2022-09-04 08:33] VITALS: BP 139/89; PULSE 80; O2SAT 100
== END 2022-09-04 08:34 | disposition home or self-care (01) ==
PROVIDERS: Emergency Provider Nurse Practitioner; PCP Nurse Practitioner Family
DX: S09.8XXA Other specified injuries of head, initial encounter (principal); S06.0X9A Concussion with loss of consciousness of unspecified duration, initial encounter; W19.XXXA Unspecified fall, initial encounter
CPT/HCPCS: 70450; 96372; 99284; J1885

== ENCOUNTER 2022-10-29 09:49 | Emergency (ER) | payer BC, MEDICAID, SELFPAY ==
[2022-10-29 09:56] VITALS: BP 149/103; PULSE 79; RESP 15; O2SAT 100; BMI 43.2
--- NOTE | 2022-10-29 10:05 | W.ED.BACK ---
HPI - Back Pain/Injury General: Chief Complaint: Back Pain/Injury Stated Complaint: lower back pressure Time Seen by Provider: 10/29/22 09:59 Source: patient Mode of arrival: ambulatory Limitations: no limitations History of Present Illness: Patient presents to the emergency department today for evaluation treatment of continued low back pain. Patient was seen and evaluated by her primary care office approximately 3 weeks ago for similar complaints. Chart review also indicates patient had been taking care of her spouse and doing a lot of heavy lifting. She also does repetitive motion at work. Patient was treated with anti-inflammatory medication, had a lumbar x-ray ordered, and a referral to physical therapy initiated. I do not see where patient had the lumbar x-ray performed, and I see no physical therapy notes in her chart. Patient reports no recent acute reinjury of her back. 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 Patient also states she does not believe she was notified about getting in with physical therapy and has not had any of the recommended treatments from her primary care evaluation 3 weeks ago. Patient has not taken anything for pain since yesterday. She denies bowel or bladder dysfunction. Review of Systems General: Reports: 10 or more systems reviewed and unremarkable except in HPI and below PFSH ED PFSH: Medical History Asthma BMI 50.0-59.9, adult Migraine Personal history of nicotine dependence Seizures Surgical History History of cholecystectomy Family History Grandmother Diabetes maternal Hyperlipidemia maternal Hypertension maternal Stroke maternal Heart disease maternal Breast cancer great grandmother, onset unknown Mother Hypertension Heart disease Uterine cancer, Onset Age: 28 Ovarian cancer, Onset Age: 26 Denies family history of Colon cancer Clotting disorder Anesthesia complication Bleeding disorder Thyroid condition Social History Smoking and tobacco status: never smoked Second hand smoke exposure: No Smoking risk assessment/counseling performed?: No Alcohol intake: current Alcohol intake frequency: holidays/special occasions only Alcohol type: wine and hard liquor Desire information about alcohol rehabilitation?: No Counseling given: No Substance/Drug Use: unknown Desire information about substance/drug rehabilitation?: No Counseling given: No Other details last substance use: last used methamphetamines Adopted: No Caregiver/support person: No Lives independently: Yes Household members: significant other Housing: House Marital status: Single Number of children: 0 service: No Current occupational status: employed Current occupation: [employer] Current occupational exposures/hazards: No Do you think of yourself as: Straight/Heterosexual Current gender identity: Female Female Reproductive History: Para: 0 Spontaneous abortions: Yes (7) Physical Exam Const: COMMON NORMALS: no acute distress, patient oriented x3 and alert HENMT: COMMON NORMALS: normocephalic, atraumatic and hearing grossly normal bilaterally HEAD & SCALP: normocephalic and atraumatic Eye: COMMON NORMALS: Equal, round and reactive pupils present, EOMs intact bilaterally and conjunctivae normal CONJUNCTIVA: Yes conjunctivae normal PUPIL: Yes Equal, round and reactive pupils present Neck/C-Spine: COMMON NORMALS: full ROM and no JVD Lymph: LYMPHATIC: no lymphadenopathy noted Resp: COMMON NORMALS: normal respiratory effort, No retractions and No use of accessory muscles Cardio: COMMON NORMALS: no JVD and regular rate RATE: regular rate Back/Pelvis: OTHER: Patient is able to independently lean forward and flex her back. She is also able to recline in the bed independently. Patient with nonspecific, generalized tenderness extending anywhere from T11 down to about L4. Extremity: NARRATIVE EXTREMITY EXAM: Patient is independently ambulatory and weightbearing in the emergency department. Neuro: COMMON NORMALS: patient oriented x3 SENSORIUM/ORIENTATION: Yes alert Psych: COMMON NORMALS: mental status grossly normal, Normal thought process present, cooperative and normal affect THOUGHT PROCESS: Normal thought process present Skin: COMMON NORMALS: no rashes or lesions noted and turgor normal GENERAL SKIN EXAM: no rashes or lesions noted and turgor normal Course Vital Signs: Vital signs: Vital Signs Pulse Rate 69 10/29/22 12:41 Respiratory Rate 15 10/29/22 09:56 Blood Pressure 128/79 10/29/22 12:41 Pulse Oximetry 97 10/29/22 12:41 Oxygen Delivery Me thod Room Air 10/29/22 12:04 MDM - Back Pain/Injury Medical Decision Making Patient presented to the ER today for evaluation treatment of multiple weeks worth of complaints of low back pain. Patient admits to heavy lifting at work and repetitive motion. Patient was treated at the primary care office but did not follow through with getting imaging and states she has not been contacted about getting in physical therapy. Patient was treated with nonnarcotic pain medication here in the ER and lumbar film was obtained. Lumbar film is otherwise unremarkable. Patient will be provided medication to help with lumbar muscle pain but, have requested our case management look into her physical therapy referral. Offered her a couple of days off work to rest at home. Went over at home options for treatment as well. Patient verbalized understanding and agreement to treatment plan. Differential Diagnosis Likely lumbar radiculopathy, sciatica, strain of lumbar region, pyelonephritis and thoracic back pain Labs Radiology Impressions Lumbar Spine X-Ray 10/29/22 10:37 IMPRESSION: No acute findings. Laboratory Results HCG, Qual Negative (Negative) 10/29/22 11:56 Urine Color Yellow (Yellow) 10/29/22 11:56 Urine Appearance Sl hazy (CLEAR) A 10/29/22 11:56 Urine pH 5 (5-7) 10/29/22 11:56 Ur Specific [place] 1.025 (1.005-1.030) 10/29/22 11:56 Urine Protein Neg (Negative) 10/29/22 11:56 Urine Glucose (UA) Norm (Normal) 10/29/22 11:56 Urine Ketones 1+ (Negative) H 10/29/22 11:56 Urine Blood 3+ (Negative) H 10/29/22 11:56 Urine Nitrate Negative (Negative) 10/29/22 11:56 Urine Bilirubin Neg (Negative) 10/29/22 11:56 Urine Urobilinogen 1 mg/dL (Negative) H 10/29/22 11:56 Ur Leukocyte Esterase Negative (Negative) 10/29/22 11:56 Urine RBC 0-4 /hpf (0-2) H 10/29/22 11:56 Urine WBC 5-10 /hpf (0-5) H 10/29/22 11:56 Ur Squamous Epith Cells 10-15 /hpf (0-5) H 10/29/22 11:56 Amorphous Sediment Not Reportable 10/29/22 11:56 Urine Bacteria 1+ /hpf (NONE) H 10/29/22 11:56 Urine Mucus 2+ /hpf 10/29/22 11:56 Discharge Plan Discharge Patient Disposition: Home Clinical Impression: Acute lumbar back pain Condition: Stable Prescriptions: New tizanidine 4 mg capsule 4 mg PO Q8H PRN (Reason: muscle spasticity) Qty: 20 0RF methylprednisolone 4 mg tablets,dose pack See Rx Instructions PO .COMPLEX Qty: 21 0RF Rx Instructions: orally per package directions naproxen 500 mg tablet 500 mg PO BID PRN (Reason: pain) Qty: 20 0RF No Action gabapentin 100 mg capsule 100 mg PO TID 30 Days Qty: 90 0RF topiramate 50 mg tablet 50 mg PO BID 30 Days Qty: 60 3RF Rx Instructions: Take one tablet twice daily. medroxyprogesterone [Depo-Provera] 150 mg/mL syringe 150 mg IM .q3 months Qty: 1 3RF prazosin 1 mg capsule 1 mg PO .qhs 30 Days Qty: 30 2RF cyclobenzaprine 10 mg tablet 10 mg PO TID PRN (Reason: muscle spasm) Qty: 90 0RF ibuprofen 800 mg tablet 800 mg PO TID PRN (Reason: pain) Qty: 90 0RF hydrochlorothiazide 25 mg tablet 25 mg PO DAILY 30 Days Qty: 30 3RF albuterol sulfate [Ventolin HFA] 90 mcg/actuation HFA aerosol inhaler 2 puff inhalation 6XD PRN (Reason: shortness of breath or wheezing) Qty: 8.5 1RF escitalopram oxalate [Lexapro] 10 mg tablet 10 mg PO DAILY 30 Days Qty: 30 0RF Discharge Orders: Discharge ED (Routine); Ordered 10/29/22 Ordered By: Hayley Quesada Referrals: Mary Kay Blount NP [Primary Care Provider] - Discharge Diet: Usual diet Discharge Activity: Increase activity as tolerated Patient Instructions: Acute Low Back Pain (ED), Back Pain (ED), Pain Management Activity Restrictions/Additional Instructions: X-rays today show no concerns with the vertebral bodies in your back. This does help confirm issues with surrounding musculature as the cause of your pain. I recommend a couple of days off work and have provided you a note. Have also given you some medications to take for the next several days to help with your back pain. I have also requested our case management workers to look into your physical therapy referral as you indicate you have not been contacted yet. I recommend continue to apply heating pads to your low back for 15 to 20 minutes, multiple times throughout the day. Avoid any strenuous activity. Stand Alone Forms: Work/School Release Coding Level of Care Code ED Office Machine Embossograph Operator for Jarrod Gunderson
--- NOTE | 2022-10-29 10:37 | XRR_ITS ---
PROCEDURE INFORMATION: Exam: XR Lumbosacral Spine Exam date and time: 10/29/2022 10:47 AM Age: 26 years old Clinical indication: Low back pain; Additional info: Back pain, x3 wks TECHNIQUE: Imaging protocol: Radiologic exam of the lumbosacral spine. Views: 2 or 3 views. COMPARISON: CT abdomen pelvis w con* [id number] 07/06/2018 7:19 PM FINDINGS: Bones/joints: Spinal alignment is normal. Vertebral body height is maintained. Intervertebral disc height is maintained. No acute fracture. Mild L5-S1 facet spondylosis. The visible portion of the pelvis and sacrum is intact. Soft tissues: Visible soft tissues are unremarkable. XR/XR lumbar spine 2-3V* [id number] IMPRESSION: No acute findings.
[2022-10-29 11:10] VITALS: BP 121/81; PULSE 74; O2SAT 100
[2022-10-29] MEDS: ketorolac 60 mg/2 mL INJ IM (11:40)
[2022-10-29] MEDS: cyclobenzaprine 10 mg Tablet PO (11:40)
[2022-10-29] MEDS: dexamethasone 10 mg/mL INJ IM (11:41)
[2022-10-29 12:04] VITALS: BP 122/92; PULSE 75; O2SAT 99
[2022-10-29 12:11] LABS: Add Urine Culture? No; Add Urine Microscopic? YES; Bacteria Urine 1+ /hpf; Bilirubin Urine Neg (Negative); Blood Urine 3+ (Negative); Glucose Urine UA Norm (Normal); HCG Qualitative Urine. Negative (Negative); Ketones Urine 1+ (Negative); Leukocyte Esterase Urine Negative (Negative); Mucus Urine 2+ /hpf; Nitrate Urine Negative (Negative); Protein Urine Neg (Negative); RBC Urine 0-4 /hpf (0-2); Specific Gravity, Urine 1.025 (1.005-1.030); Urine Appearance SL Hazy (CLEAR); Urine Color Yellow (Yellow); Urobilinogen Urine 1 mg/dL (Negative); pH Urine 5 (5-7)
[2022-10-29 12:41] VITALS: BP 128/79; PULSE 69; O2SAT 97
--- NOTE | 2022-11-18 13:21 | DCPLANNER ---
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 Patients information was sent to physical therapy, clinic will call patient.
== END 2022-10-29 12:42 | disposition home or self-care (01) ==
PROVIDERS: Emergency Provider Physician Assistant; PCP Nurse Practitioner Family
DX: M54.50 Low back pain, unspecified (principal)
CPT/HCPCS: 72100; 81001; 81025; 96372; 99284; J1100; J1885

== ENCOUNTER 2022-10-30 18:10 | Emergency (ER) | payer BC, MEDICAID, SELFPAY ==
[2022-10-30 18:16] VITALS: BP 117/84; PULSE 80; RESP 18; O2SAT 99; BMI 43.2
--- NOTE | 2022-10-30 18:36 | CTR_ITS ---
PROCEDURE INFORMATION: Exam: CT Lumbar Spine Without Contrast Exam date and time: 10/30/2022 6:39 PM Age: 26 years old Clinical indication: Other: Parasthesia to b/l le; Low back pain; Additional info: Back pain, paresthesia to b le TECHNIQUE: Imaging protocol: Computed tomography of the lumbar spine without contrast. Radiation optimization: All CT scans at this facility use at least one of these dose optimization techniques: automated exposure control; mA and/or kV adjustment per patient size (includes targeted exams where dose is matched to clinical indication); or iterative reconstruction. REPORTING DATA: Count of CT and Cardiac NM exams in prior 12 months: This patient has received [address] and 0 known cardiac nuclear medicine studies in the 12 months prior to the current study. COMPARISON: CR (PELVIS, ) 10/29/2022 10:47 AM RADIATION DOSE METRICS: Total DLP (mGy-cm): 1020.48 FINDINGS: Bones/joints: No acute fracture. Normal alignment. L1-L2: No significant disc bulge or herniation. No severe spinal canal stenosis. No significant neural foraminal narrowing. L2-L3: No significant disc bulge or herniation. No severe spinal canal stenosis. No significant neural foraminal narrowing. L3-L4: No significant disc bulge or herniation. No severe spinal canal stenosis. No significant neural foraminal narrowing. L4-L5: No significant disc bulge or herniation. No severe spinal canal stenosis. No significant neural foraminal narrowing. L5-S1: No significant disc bulge or herniation. No severe spinal canal stenosis. No significant neural foraminal narrowing. Gallbladder and bile ducts: Cholecystectomy. Soft tissues: Unremarkable. CT/CT lumbar spine wo con* [id number] IMPRESSION: 1. Negative for a disc herniation, neural foraminal or spinal canal narrowing 2. Cholecystectomy.
--- NOTE | 2022-10-30 18:53 | ED_ITS ---
HPI - Back Pain/Injury General: Chief Complaint: Back Pain/Injury Stated Complaint: back pain Time Seen by Provider: 10/30/22 18:25 History of Present Illness: 26-year-old female with a history of back pain. She presented yesterday with the same symptoms, upper lumbar spine pain that is somewhat radicular. X-rays were essentially negative yesterday. She was placed on steroids, muscle relaxers, naproxen, of which she has had 1 dose of each. Today she noted that she began to have numbness to her bilateral lower extremities. Intermittent in nature, although she says she is still numb now currently no weakness. Significant or permanent loss to genital region. No loss of bowel or bladder function. She was told to return if she developed numbness or tingling, which is why she is here. MD elicited complaint: back pain Pertinent past history: prior back pain Onset (ago): hour(s) Severity: moderate Similar Symptoms Previously: Yes Location: lumbar spine Radiation: none Exacerbating factors: movement Relieving factors: none Associated symptoms: Reports numbness; Deny abdominal pain, difficulty walking, dysuria, fecal incontinence, fever(s), urinary frequency, urinary urgency or vomiting Review of Systems Const: Denies: fever(s) Card: Denies: chest pain or palpitations Resp: Denies: dyspnea GI: Denies: abdominal pain, vomiting or fecal incontinence : Denies: dysuria or urinary urgency Neuro: Denies: difficulty walking [facility] ED PFSH: Medical History Asthma BMI 50.0-59.9, adult Migraine Personal history of nicotine dependence Seizures Surgical History History of cholecystectomy Family History Grandmother Diabetes maternal Hyperlipidemia maternal Hypertension maternal Stroke maternal Heart disease maternal Breast cancer great grandmother, onset unknown Mother Hypertension Heart disease Uterine cancer, Onset Age: 28 Ovarian cancer, Onset Age: 26 Denies family history of Colon cancer Clotting disorder Anesthesia complication Bleeding disorder Thyroid condition Social History Smoking and tobacco status: never smoked Second hand smoke exposure: No Smoking risk assessment/counseling performed?: No Alcohol intake: current Alcohol intake frequency: holidays/special occasions only Alcohol type: wine and hard liquor Desire information about alcohol rehabilitation?: No Counseling given: No Substance/Drug Use: unknown Desire information about substance/drug rehabilitation?: No Counseling given: No Other details last substance use: last used methamphetamines Adopted: No Caregiver/support person: No Lives independently: Yes Household members: significant other Housing: House Marital status: Single Number of children: 0 service: No Current occupational status: employed Current occupation: [employer] Current occupational exposures/hazards: No Do you think of yourself as: Straight/Heterosexual Current gender identity: Female Female Reproductive History: Para: 0 Spontaneous abortions: Yes (7) Physical Exam Const: COMMON NORMALS: no acute distress HENMT: COMMON NORMALS: normocephalic HEAD & SCALP: normocephalic FACE & SINUS: normal facial exam Eye: COMMON NORMALS: Equal, round and reactive pupils present and EOMs intact bilaterally PUPIL: Yes Equal, round and reactive pupils present Chest: CHEST: Yes Symmetrical chest wall rise Resp: COMMON NORMALS: normal respiratory effort, No use of accessory muscles and clear to auscultation bilaterally AUSCULTATION: clear to auscultation bilaterally Cardio: COMMON NORMALS: regular rate and regular rhythm RATE: regular rate RHYTHM: regular rhythm GI: COMMON NORMALS: Normal to inspection, nondistended, normoactive bowel sounds present and non-tender Back/Pelvis: OTHER: Examination lumbar spine reveals tenderness to the thoracolumbar junction. There is less tenderness distally. Tenderness appears to be midline, although she is tender across her back. She describes numbness of the lower extremities. Straight leg raise testing does not worsen pain or cause radicular pain. Numbness is subjective. Strength is intact with dorsiflexion, hip flexion, and plantarflexion bilaterally. Neuro: ALEXANDRE COMA SCALE: document GCS findings Alexandre coma scale eye opening: Spontaneous Alexnadre coma scale verbal response: Orientated Alexandre coma scale motor response: Obey commands Alexandre coma scale total score: 15 OTHER: See above Psych: COMMON NORMALS: mental status grossly normal Course Vital Signs: Vital signs: Vital Signs Pulse Rate 71 10/30/22 20:32 Respiratory Rate 16 10/30/22 20:32 Blood Pressure 130/85 10/30/22 20:32 Pulse Oximetry 100 10/30/22 20:32 Oxygen Delivery Me thod Room Air 10/30/22 20:32 MDM - Back Pain/Injury Medical Decision Making CT reveals no herniation or stenosis. No fracture. Sensation is grossly intact to the lower extremities although subjectively decreased. She will continue her steroid. Pain control. Outpatient follow-up. Labs Radiology Impressions Lumbar Spine CT 10/30/22 18:36 IMPRESSION: 1. Negative for a disc herniation, neural foraminal or spinal canal narrowing 2. Cholecystectomy. Discharge Plan Discharge Patient Disposition: Home Clinical Impression: Acute lumbar back pain Condition: Stable Prescriptions: New hydrocodone-acetaminophen 5-325 mg tablet 1 tab PO Q8H PRN (Reason: pain) Qty: 7 0RF No Action gabapentin 100 mg capsule 100 mg PO TID 30 Days Qty: 90 0RF topiramate 50 mg tablet 50 mg PO BID 30 Days Qty: 60 3RF Rx Instructions: Take one tablet twice daily. medroxyprogesterone [Depo-Provera] 150 mg/mL syringe 150 mg IM .q3 months Qty: 1 3RF prazosin 1 mg capsule 1 mg PO .qhs 30 Days Qty: 30 2RF cyclobenzaprine 10 mg tablet 10 mg PO TID PRN (Reason: muscle spasm) Qty: 90 0RF ibuprofen 800 mg tablet 800 mg PO TID PRN (Reason: pain) Qty: 90 0RF hydrochlorothiazide 25 mg tablet 25 mg PO DAILY 30 Days Qty: 30 3RF albuterol sulfate [Ventolin HFA] 90 mcg/actuation HFA aerosol inhaler 2 puff inhalation 6XD PRN (Reason: shortness of breath or wheezing) Qty: 8.5 1RF escitalopram oxalate [Lexapro] 10 mg tablet 10 mg PO DAILY 30 Days Qty: 30 0RF tizanidine 4 mg capsule 4 mg PO Q8H PRN (Reason: muscle spasticity) Qty: 20 0RF methylprednisolone 4 mg tablets,dose pack See Rx Instructions PO .COMPLEX Qty: 21 0RF Rx Instructions: orally per package directions naproxen 500 mg tablet 500 mg PO BID PRN (Reason: pain) Qty: 20 0RF Discharge Orders: Discharge ED (Routine); Ordered 10/30/22 Ordered By: Ar Matute Referrals: Mary Kay Blount NP [Primary Care Provider] - 1-3 days Patient Instructions: Back Pain (ED), Opioid Safety, Pain Management Activity Restrictions/Additional Instructions: Continue your current medications. Pain medication for extreme pain. See your doctor in follow-up. Coding Level of Care Code ED Operations Inspector for Jarrod Gunderson
[2022-10-30 20:32] VITALS: BP 130/85; PULSE 71; RESP 16; O2SAT 100
== END 2022-10-30 20:49 | disposition home or self-care (01) ==
PROVIDERS: Emergency Provider Emergency Medicine; PCP Nurse Practitioner Family
DX: M54.50 Low back pain, unspecified (principal)
CPT/HCPCS: 72131; 99284

== ENCOUNTER → 2022-11-18 14:28 | Outpatient (BNVA) | payer BC, MEDICAID, SELFPAY | PROVIDERS: PCP Nurse Practitioner Family; Visit Provider Nurse Practitioner Family | DX: M79.641 Pain in right hand (principal) | CPT/HCPCS: 73130 ==

== ENCOUNTER 2022-12-24 15:10 | Emergency (ER) | payer OTHER, SELFPAY ==
[2022-12-24 15:18] VITALS: BP 149/85; PULSE 82; RESP 16; TEMP 37.1; O2SAT 97; BMI 39.1
[2022-12-24 17:31] LABS: Basophils # 0.1 10^3/uL (0.0-0.1); Basophils % 0.5 %; Eosinophils % 0.4 %; Hematocrit 41.8 % (37.0-47.0); Hemoglobin 13.2 g/dL (11.5-15.3); Lymphocytes # 1.6 10^3/uL (0.8-4.8); Lymphocytes % 16.5 %; Mean Corpuscular HGB Conc 31.6 g/dL (30.0-36.0); Mean Corpuscular Hemoglobin 24.8 pg (28.0-34.0); Mean Corpuscular Volume 78.4 fl (81-99); Mean Platelet Volume 10.1 fL (7.4-10.4); Monocytes # 0.6 10^3/uL (0.2-0.9); Monocytes % 5.7 %; Neutrophils # 7.41 10^3/uL (1.8-7.7); Neutrophils % 76.7 %; Nucleated Red Blood Cells % 0 %; Platelet Count 395 10^3/cmm (130-400); Red Blood Count 5.33 10^6/uL (4.1-5.3); Red Cell Distribution Width 15.5 % (12.1-15.1); White Blood Count 9.7 10^3/uL (4.0-10.0)
[2022-12-24 18:15] LABS: Alanine Aminotransferase 30 U/L (0-33); Albumin Level 4.1 g/dL (3.5-5.2); Alkaline Phosphatase 79 U/L (35-105); Anion Gap 14.5 (5-19); Aspartate Amino Transferase 22 U/L (0-32); Blood Urea Nitrogen 8 mg/dL (6-20); Calcium 9.6 mg/dL (8.5-10.5); Carbon Dioxide 25 mmol/L (22-29); Chloride 105 mmol/L (98-107); Globulin 3.6 g/dL (1.3-4.6); Glomerular Filtration Rate 84.8 mL/min (90-130); Glucose 93 mg/dL (65-115); Osmolality Calculated 290 mOsm/kg (285-295); Potassium 3.5 mmol/L (3.5-5.1); Sodium 141 mmol/L (136-145); Total Bilirubin 0.4 mg/dL (0.15-1.2); Total Protein 7.7 g/dL (6.6-8.7)
[2022-12-24] MEDS: aluminum-mag hydrox-simethicon 30 ML, sucralfate oral liq 1 GM PO (18:22)
[2022-12-24 18:34] LABS: Lipase 27 U/L (13-60)
--- NOTE | 2022-12-24 18:37 | W.ED.NAVMDI ---
HPI - Nausea/Vomiting/Diarrhea General: Chief complaint: Nausea/Vomiting/Diarrhea Stated complaint: vomiting blood Time Seen by Provider: 12/24/22 17:03 History of Present Illness: Patient is a 27-year-old complaints of abdominal pain. Pain is primarily localized to the low abdomen She denies fever chills Associated nausea: No Associated symtoms: Denies bloating, change in vision, chest pain, dizziness, dysuria, fatigue, headache(s), malaise, nausea, palpitations or tinnitus Review of Systems General: Reports: 10 or more systems reviewed and unremarkable except in HPI and below Const: Denies: fever(s), chills, change in appetite, change in weight, fatigue or malaise Eyes: Denies: change in vision, eye discomfort, eye discharge or eye redness ENMT: Denies: throat pain, enlarged tonsils, odynophagia, hoarseness, ear or mastoid pain, ear discharge, change in hearing, tinnitus, nasal discharge, nasal congestion, post nasal drip or sinus pain Card: Denies: chest pain, palpitations, irregular heart rhythm, edema, dyspnea on exertion, orthopnea or leg pain with exertion Resp: Denies: dyspnea, productive cough, non-productive cough, wheezing, stridor or chest congestion GI: Denies: abdominal pain, nausea, vomiting, dysphagia, diarrhea, constipation, bloating, GI cramping or hematochezia : Denies: flank pain, difficulty voiding, dysuria, urinary frequency, urinary urgency, urinary hesitancy, oliguria or hematuria Musc: Denies: neck pain, back pain, extremity pain, joint pain, joint swelling, joint redness, joint warmth or muscle weakness Skin/Breast: Denies: rash, pruritus, erythema, photosensitivity or new lesions Neuro: Denies: headache(s), numbness in extremities, weakness in extremities, sensory changes, lack of coordination, difficulty walking, frequent falls, dizziness, confusion, Slurred speech present, difficulty communicating thoughts, seizure-like activity or involuntary movements Endo: Denies: polyuria, polydipsia or tired all the time Kory/Lymph: Denies: easy bruising or easy bleeding PFSH ED PFSH: Medical History Asthma BMI 50.0-59.9, adult Migraine Personal history of nicotine dependence Seizures Surgical History History of cholecystectomy Family History Grandmother Diabetes maternal Hyperlipidemia maternal Hypertension maternal Stroke maternal Heart disease maternal Breast cancer great grandmother, onset unknown Mother Hypertension Heart disease Uterine cancer, Onset Age: 28 Ovarian cancer, Onset Age: 26 Denies family history of Colon cancer Clotting disorder Anesthesia complication Bleeding disorder Thyroid condition Social History Smoking and tobacco status: never smoked Second hand smoke exposure: No Smoking risk assessment/counseling performed?: No Alcohol intake: current Alcohol intake frequency: holidays/special occasions only Alcohol type: wine and hard liquor Desire information about alcohol rehabilitation?: No Counseling given: No Substance/Drug Use: unknown Desire information about substance/drug rehabilitation?: No Counseling given: No Other details last substance use: last used methamphetamines Adopted: No Caregiver/support person: No Lives independently: Yes Household members: significant other Housing: House Marital status: Single Number of children: 0 service: No Current occupational status: employed Current occupation: [employer] Current occupational exposures/hazards: No Do you think of yourself as: Straight/Heterosexual Current gender identity: Female Female Reproductive History: Para: 0 Spontaneous abortions: Yes (7) Physical Exam Const: COMMON NORMALS: no acute distress, patient oriented x3 and alert GENERAL APPEARANCE: cooperative ORIENTATION/CONSCIOUSNESS: Yes awake, Yes oriented to person, Yes oriented to place and Yes oriented to time HENMT: COMMON NORMALS: normocephalic and atraumatic HEAD & SCALP: normocephalic and atraumatic FACE & SINUS: normal facial exam MOUTH: Normal oral and palatal mucosa present THROAT: posterior oropharynx normal Eye: COMMON NORMALS: Equal, round and reactive pupils present, EOMs intact bilaterally, conjunctivae normal and no scleral icterus GENERAL EYE: appearance normal, both eyes and all related structures ALIGNMENT: Yes alignment normal PERIORBITAL: periorbital findings normal CONJUNCTIVA: Yes conjunctivae normal PUPIL: Yes Equal, round and reactive pupils present Neck/C-Spine: COMMON NORMALS: full ROM GENERAL: Yes normal visual inspection Lymph: LYMPHATIC: no lymphadenopathy noted Chest: COMMONS NORMALS: normal inspection of the chest Breast/axilla inspection: Yes no chest deformity, asymmetry, normal contours, no nodules, masses, tenderness Resp: COMMON NORMALS: normal respiratory effort, No retractions, No use of accessory muscles and clear to auscultation bilaterally EFFORT & INSPECTION: Yes able to speak in complete sentences and Yes symmetric chest movement AUSCULTATION: clear to auscultation bilaterally Cardio: COMMON NORMALS: regular rate, regular rhythm and Peripheral pulses 2+ throughout RATE: regular rate RHYTHM: regular rhythm PERIPHERAL PULSES: Peripheral pulses 2+ throughout GI: COMMON NORMALS: Normal to inspection, nondistended, normoactive bowel sounds present, Soft to palpation, non-tender and No hepatosplenomegaly present INSPECTION: Yes normal to inspection AUSCULTATION: Yes normoactive bowel sounds PALPATION: Yes Soft to palpation and Yes No hepatosplenomegaly present RECTAL EXAM: deferred Extremity: COMMON NORMALS: normal to inspection GENERAL: Yes normal exam except as noted Neuro: COMMON NORMALS: patient oriented x3 SENSORIUM/ORIENTATION: Yes alert, Yes oriented to person, Yes oriented to place and Yes oriented to time CRANIAL NERVES: Yes CN normal except as noted Psych: COMMON NORMALS: mental status grossly normal, Normal thought process present, cooperative, activity/motor behavior normal, denies homicidal ideation and denies suicidal ideation THOUGHT PROCESS: Normal thought process present Skin: COMMON NORMALS: no rashes or lesions noted, no wounds and turgor normal GENERAL SKIN EXAM: no rashes or lesions noted and turgor normal Course Vital Signs: Vital signs: Vital Signs Temperature 98.8 F 12/24/22 15:18 Pulse Rate 66 12/24/22 19:10 Respiratory Rate 17 12/24/22 19:10 Blood Pressure 145/77 12/24/22 19:10 Pulse Oximetry 99 12/24/22 19:10 Oxygen Delivery Me thod Room Air 12/24/22 19:10 MDM - Nausea/Vomiting/Diarrhea Medical Decision Making Patient was evaluated in the emergency department. She arrived with complaints of lower abdominal pain. There is associated nausea vomiting and diarrhea. Frontal diagnosis includes gastroenteritis urinary tract infection, diverticulitis. Patient underwent diagnostic evaluation including oratory studies and UA laboratory studies revealed no leukocytosis, anemias, electrolyte abnormalities, renal or hepatic lipase. She does have a pretty dirty urine. Positive for nitrates 3+ bacteria 15,009 white blood cells and leukoesterase Patient was treated here in the emergency department; I am going to discharge her home with a prescription for Keflex and Pyridium. All questions answered Lab Data 12/24/22 17:20 12/24/22 17:20 Laboratory Results WBC 9.7 10^3/uL (4.0-10.0) 12/24/22 17:20 RBC 5.33 10^6/uL (4.1-5.3) H 12/24/22 17:20 Hgb 13.2 g/dL (11.5-15.3) 12/24/22 17:20 Hct 41.8 % (37.0-47.0) 12/24/22 17:20 MCV 78.4 fl (81-99) L 12/24/22 17:20 MCH 24.8 pg (28.0-34.0) L 12/24/22 17:20 MCHC 31.6 g/dL (30.0-36.0) 12/24/22 17:20 RDW 15.5 % (12.1-15.1) H 12/24/22 17:20 Plt Count 395 10^3/cmm (130-400) 12/24/22 17:20 MPV 10.1 fL (7.4-10.4) 12/24/22 17:20 Neut % (Auto) 76.7 % 12/24/22 17:20 Lymph % (Auto) 16.5 % 12/24/22 17:20 [place] % (Auto) 5.7 % 12/24/22 17:20 Eos % (Auto) 0.4 % 12/24/22 17:20 Baso % (Auto) 0.5 % 12/24/22 17:20 Neut # (Auto) 7.41 10^3/uL (1.8-7.7) 12/24/22 17:20 Lymph # (Auto) 1.6 10^3/uL (0.8-4.8) 12/24/22 17:20 [place] # (Auto) 0.6 10^3/uL (0.2-0.9) 12/24/22 17:20 Eos # (Auto) 0.0 10^3/uL (0.0-0.8) 12/24/22 17:20 Baso # (Auto) 0.1 10^3/uL (0.0-0.1) 12/24/22 17:20 Nucleated RBC % (auto) 0 % 12/24/22 17:20 Nucleated RBCs # 0.0 /100WBC 12/24/22 17:20 Sodium 141 mmol/L (136-145) 12/24/22 17:20 Potassium 3.5 mmol/L (3.5-5.1) 12/24/22 17:20 Chloride 105 mmol/L (98-107) 12/24/22 17:20 Carbon Dioxide 25 mmol/L (22-29) 12/24/22 17:20 Anion Gap 14.5 (5-19) 12/24/22 17:20 BUN 8 mg/dL (6-20) 12/24/22 17:20 Creatinine 0.8 mg/dL (0.5-0.9) 12/24/22 17:20 GFR Calculation 84.8 mL/min (90-130) L 12/24/22 17:20 Glucose 93 mg/dL (65-115) 12/24/22 17:20 Calculated Osmolality 290 mOsm/kg (285-295) 12/24/22 17:20 Calcium 9.6 mg/dL (8.5-10.5) 12/24/22 17:20 Total Bilirubin 0.4 mg/dL (0.15-1.2) 12/24/22 17:20 AST 22 U/L (0-32) 12/24/22 17:20 ALT 30 U/L (0-33) 12/24/22 17:20 Alkaline Phosphatase 79 U/L (35-105) 12/24/22 17:20 Total Protein 7.7 g/dL (6.6-8.7) 12/24/22 17:20 Albumin 4.1 g/dL (3.5-5.2) 12/24/22 17:20 Globulin 3.6 g/dL (1.3-4.6) 12/24/22 17:20 Lipase 27 U/L (13-60) 12/24/22 17:20 HCG, Qual Negative (Negative) 12/24/22 18:23 Urine Color Yellow (Yellow) 12/24/22 18:25 Urine Appearance Cloudy (CLEAR) A 12/24/22 18:25 Urine pH 5 (5-7) 12/24/22 18:25 Ur Specific [place] 1.025 (1.005-1.030) 12/24/22 18:25 Urine Protein 1+ (Negative) H 12/24/22 18:25 Urine Glucose (UA) Norm (Normal) 12/24/22 18:25 Urine Ketones 1+ (Negative) H 12/24/22 18:25 Urine Blood 3+ (Negative) H 12/24/22 18:25 Urine Nitrate Positive (Negative) H 12/24/22 18:25 Urine Bilirubin 1+ (Negative) H 12/24/22 18:25 Urine Urobilinogen Norm mg/dL (Negative) 12/24/22 18:25 Ur Leukocyte Esterase 2+ (Negative) H 12/24/22 18:25 Urine RBC 15-25 /hpf (0-2) H 12/24/22 18:25 Urine WBC >100 /hpf (0-5) H 12/24/22 18:25 Ur Squamous Epith Cells 5-10 /hpf (0-5) H 12/24/22 18:25 Amorphous Sediment Not Reportable 12/24/22 18:25 Urine Bacteria 3+ /hpf (NONE) H 12/24/22 18:25 Urine Mucus 1+ /hpf 12/24/22 18:25 Blood Type A Positive 12/24/22 17:20 Rho(D) Type Positive 12/24/22 17:20 Antibody Screen Negative 12/24/22 17:20 Discharge Plan Discharge Patient Disposition: Home Clinical Impression: Urinary tract infection Condition: Stable Prescriptions: New cephalexin 500 mg capsule 500 mg PO BID 7 Days Qty: 14 0RF phenazopyridine [Pyridium] 200 mg tablet 200 mg PO Q8H 3 Days Qty: 9 0RF No Action gabapentin 100 mg capsule 100 mg PO TID 30 Days Qty: 90 0RF topiramate 50 mg tablet 50 mg PO BID 30 Days Qty: 60 3RF Rx Instructions: Take one tablet twice daily. medroxyprogesterone [Depo-Provera] 150 mg/mL syringe 150 mg IM .q3 months Qty: 1 3RF prazosin 1 mg capsule 1 mg PO .qhs 30 Days Qty: 30 2RF ibuprofen 800 mg tablet 800 mg PO TID PRN (Reason: pain) Qty: 90 0RF tizanidine 4 mg capsule 4 mg PO Q8H PRN (Reason: muscle spasticity) Qty: 90 1RF hydrocodone-acetaminophen 5-325 mg tablet 1 tab PO Q8H PRN (Reason: pain) 7 Days Qty: 20 0RF (DME) lumbar supports Misc See Rx Instructions .Route Rx Instructions: As directed hydrochlorothiazide 25 mg tablet 25 mg PO DAILY 30 Days Qty: 30 3RF albuterol sulfate [Ventolin HFA] 90 mcg/actuation HFA aerosol inhaler 2 puff inhalation 6XD PRN (Reason: shortness of breath or wheezing) Qty: 8.5 1RF escitalopram oxalate [Lexapro] 10 mg tablet 10 mg PO DAILY 30 Days Qty: 30 0RF naproxen 500 mg tablet 500 mg PO BID PRN (Reason: pain) Qty: 20 0RF Discharge Orders: Discharge ED (Routine); Ordered 12/24/22 Ordered By: Olayinka Walls McTeer Referrals: Mary Kay Blount NP [Primary Care Provider] - Discharge Diet: Advance as tolerated Patient Instructions: Pain Management, Urinary Tract Infection - Women Activity Restrictions/Additional Instructions: Please return to the emergency department for new concerning or worsening symptoms Coding Level of Care Code ED Telephone Advice Nurse for Jarrod Gunderson
[2022-12-24] MEDS: sodium chloride 0.9% 500 ML IV (18:57)
[2022-12-24 19:10] VITALS: BP 145/77; PULSE 66; RESP 17; O2SAT 99
[2022-12-24 19:17] LABS: Glucose Urine UA Norm (Normal); Protein Urine 1+ (Negative); Specific Gravity, Urine 1.025 (1.005-1.030); Urine Appearance Cloudy (CLEAR); Urine Color Yellow (Yellow); pH Urine 5 (5-7)
[2022-12-24 19:18] LABS: Add Urine Microscopic? YES; Bilirubin Urine 1+ (Negative); Blood Urine 3+ (Negative); Ketones Urine 1+ (Negative); Leukocyte Esterase Urine 2+ (Negative); Nitrate Urine Positive (Negative); Urobilinogen Urine Norm (Negative)
[2022-12-24 19:21] LABS: Bacteria Urine 3+ /hpf; Mucus Urine 1+ /hpf; RBC Urine 15-25 /hpf (0-2); WBC Urine >100 /hpf (0-5)
[2022-12-24 19:22] LABS: HCG Qualitative Urine. Negative (Negative)
[2022-12-24 19:22] LABS: Add Urine Culture? Yes
[2022-12-24] MEDS: phenazopyridine 100 mg Tablet 200 MG PO (20:55)
[2022-12-24] MEDS: cephALEXin 500 mg Capsule PO (20:56)
== END 2022-12-24 23:02 | disposition home or self-care (01) ==
PROVIDERS: Emergency Medicine; Emergency Provider Nurse Practitioner; PCP Nurse Practitioner Family
DX: N39.0 Urinary tract infection, site not specified (principal)
CPT/HCPCS: 36415; 80053; 81001; 81025; 83690; 85025; 86850; 86900; 87077; 87086; 87186; 96360; 96361; 99284; J7040

== ENCOUNTER → 2022-12-29 15:49 | Outpatient (BNVA) | payer OTHER, SELFPAY | PROVIDERS: PCP Nurse Practitioner Family; Visit Provider Nurse Practitioner Family | DX: K92.0 Hematemesis (principal); F32.9 Major depressive disorder, single episode, unspecified; G43.909 Migraine, unspecified, not intractable, without status migrainosus; R56.9 Unspecified convulsions; K21.9 Gastro-esophageal reflux disease without esophagitis; E66.01 Morbid (severe) obesity due to excess calories; R53.83 Other fatigue; F41.9 Anxiety disorder, unspecified; F32.A Depression, unspecified; M54.50 Low back pain, unspecified | CPT/HCPCS: 80053; 80061; 82306; 82607; 82746; 83550 ==

== ENCOUNTER 2023-01-16 13:36 | Emergency (ER) | payer OTHER, SELFPAY ==
[2023-01-16 13:38] VITALS: BP 165/104; PULSE 90; RESP 16; TEMP 36.5; O2SAT 96; BMI 38.2
--- NOTE | 2023-01-16 13:47 | ECG_ITS ---
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 Measurements Intervals [place] Rate: 88 P: 20 SC: 132 QRS: -9 QRSD: 92 T: 97 QT: 350 QTc: 424 Interpretive Statements SINUS RHYTHM ST DEVIATION AND MODERATE T-WAVE ABNORMALITY, CONSIDER LATERAL ISCHEMIA [-0.1+ mV T-WAVE IN I/aVL/V5/V6] No previous ECG available for comparison Electronically Signed On 01-16-2023 22:29:33 CDT by Storm Noble M.D. [id number]
--- NOTE | 2023-01-16 14:09 | XRR_ITS ---
PROCEDURE INFORMATION: Exam: XR Chest Exam date and time: 01/16/2023 2:15 PM Age: 27 years old Clinical indication: Cough and dyspnea TECHNIQUE: Imaging protocol: Radiologic exam of the chest. Views: 2 views. COMPARISON: CR XR chest 2V* [id number] 05/30/2022 3:10 PM FINDINGS: Lungs: Unremarkable. No consolidation. Pleural spaces: Unremarkable. No pleural effusion. No pneumothorax. Heart/Mediastinum: Unremarkable. No cardiomegaly. Bones/joints: Unremarkable. Intraperitoneal space: Right upper abdomen surgical clips. XR/XR chest 2V* [id number] IMPRESSION: No acute findings.
--- NOTE | 2023-01-16 14:10 | ED_ITS ---
HPI - SOB/Dyspnea General: Chief Complaint: Shortness of Breath/Dyspnea Stated Complaint: sob Time Seen by Provider: 01/16/23 14:04 Source: patient and family Mode of arrival: ambulatory Limitations: no limitations History of Present Illness: HPI Narrative: See nursing assessment. Patient with complaints of intermittent shortness of breath and occasional cough that has been nonproductive for the past 3 days. Patient denies any fever. Patient denies any pain. Patient denies any sore throat. Patient does have an albuterol inhaler at home as needed. She does smoke cigarettes. Possible history includes asthma, chronic bronchitis, seizure disorder, migraine headaches. Onset (ago): day(s) (3) Context: other (Other members in the household have had similar illness in the past week to 10 days.) Severity: mild Exacerbating factors: nothing Relieving factors: nothing Known history of: asthma Associated symptoms: Reports cough; Deny abdominal pain, chest congestion, chest pain, diaphoresis, dizziness, extremity pain, fever(s), hemoptysis, lightheadedness, myalgias, nausea, orthopnea, rash or vomiting Review of Systems Const: Denies: fever(s) or diaphoresis Eyes: Denies: change in vision ENMT: Denies: throat pain Card: Denies: chest pain, lightheadedness or orthopnea Resp: Reports: dyspnea, non-productive cough and wheezing; Denies: productive cough, stridor, pain on inspiration, hemoptysis or chest congestion GI: Denies: abdominal pain, nausea or vomiting : Denies: flank pain Musc: Denies: extremity pain Skin/Breast: Denies: rash or pruritus Neuro: Denies: dizziness Psych: Denies: anxiety Kory/Lymph: Denies: enlarged lymph nodes PFSH ED PFSH: Medical History Asthma BMI 50.0-59.9, adult Migraine Personal history of nicotine dependence Seizures Surgical History History of cholecystectomy Family History Grandmother Diabetes maternal Hyperlipidemia maternal Hypertension maternal Stroke maternal Heart disease maternal Breast cancer great grandmother, onset unknown Mother Hypertension Heart disease Uterine cancer, Onset Age: 28 Ovarian cancer, Onset Age: 26 Denies family history of Colon cancer Clotting disorder Anesthesia complication Bleeding disorder Thyroid condition Social History Smoking and tobacco status: never smoked Second hand smoke exposure: No Smoking risk assessment/counseling performed?: No Alcohol intake: current Alcohol intake frequency: holidays/special occasions only Alcohol type: wine and hard liquor Desire information about alcohol rehabilitation?: No Counseling given: No Substance/Drug Use: unknown Desire information about substance/drug rehabilitation?: No Counseling given: No Other details last substance use: last used methamphetamines Adopted: No Caregiver/support person: No Lives independently: Yes Household members: significant other Housing: House Marital status: Single Number of children: 0 service: No Current occupational status: employed Current occupation: [employer] Current occupational exposures/hazards: No Do you think of yourself as: Straight/Heterosexual Current gender identity: Female Female Reproductive History: Para: 0 Spontaneous abortions: Yes (7) Physical Exam Const: COMMON NORMALS: no acute distress, patient oriented x3, no limitations and well nourished GENERAL APPEARANCE: cooperative HENMT: COMMON NORMALS: normocephalic and atraumatic HEAD & SCALP: normocephalic and atraumatic FACE & SINUS: normal facial exam Eye: COMMON NORMALS: EOMs intact bilaterally Neck/C-Spine: COMMON NORMALS: full ROM, no lymphadenopathy, supple and no meningeal signs GENERAL: Yes normal visual inspection Lymph: LYMPHATIC: no lymphadenopathy noted Chest: COMMONS NORMALS: normal inspection of the chest and normal palpation of entire chest wall CHEST: No Ecchymosis present and No rash Resp: COMMON NORMALS: normal respiratory effort, No retractions and clear to auscultation bilaterally EFFORT & INSPECTION: No respiratory distress AUSCULTATION: clear to auscultation bilaterally OTHER: Lungs are clear to auscultation bilaterally. No wheezes rhonchi or crackles heard. No respiratory distress. Pulse oximetry is normal. Cardio: COMMON NORMALS: regular rate, regular rhythm and Peripheral pulses 2+ throughout JUGULAR VENOUS DISTENTION: no JVD RATE: regular rate RHYTHM: regular rhythm PERIPHERAL PULSES: Peripheral pulses 2+ throughout GI: COMMON NORMALS: Normal to inspection, nondistended, normoactive bowel sounds present, Soft to palpation, non-tender, No hepatosplenomegaly present and no masses PALPATION: Yes Soft to palpation and Yes No hepatosplenomegaly present OTHER: Morbid obesity : COMMON NORMALS: Yes no CVA tenderness BLADDER/KIDNEY EXAM: Yes no CVA tenderness Back/Pelvis: COMMON NORMALS: no CVA tenderness Extremity: COMMON NORMALS: normal to inspection, full ROM and capillary refill normal Neuro: COMMON NORMALS: patient oriented x3, CN's II-XII intact bilaterally, no focal motor deficits and no sensory deficits noted MENINGEAL SIGNS: Yes no meningeal signs Psych: COMMON NORMALS: mental status grossly normal and Normal thought process present THOUGHT PROCESS: Normal thought process present Skin: COMMON NORMALS: no rashes or lesions noted GENERAL SKIN EXAM: no rashes or lesions noted OTHER: ColitisMultiple superficial excoriations to the lower extremities bilaterally.. Course Vital Signs: Vital signs: Vital Signs Temperature 97.7 F 01/16/23 13:38 Pulse Rate 83 01/16/23 14:34 Respiratory Rate 16 01/16/23 14:34 Blood Pressure 128/75 01/16/23 14:34 Pulse Oximetry 100 01/16/23 14:34 Oxygen Delivery Me thod Room Air 01/16/23 14:34 MDM - SOB/Dyspnea Medical Decision Making 27-year-old female with complaints of shortness of breath. Patient is morbidly obese. She has a history of asthma and chronic bronchitis but continues to smoke cigarettes. Lungs are clear to auscultation on exam. Differential diagnoses include exacerbation of chronic bronchitis, exacerbation of chronic asthma, viral bronchitis, bacterial bronchitis, bacterial community-acquired pneumonia. Will obtain COVID swab and chest x-ray. Patient states there is no possibility of . covid and cxr neg Will refill albuterol inhaler and placed on 3-day course of prednisone. Lab Data Labs/Radiology: Radiology Impressions Chest X-Ray 01/16/23 14:09 IMPRESSION: No acute findings. Laboratory Results SARS-CoV-2 Ag (Rapid) negative (Negative) 01/16/23 14:39 Imaging Data CXR: I personally reviewed and interpreted this imaging study as follows: My impression: PA lateral chest x-ray shows nothing acute. Radiologist's impression: Ordering Provider/Ordering MD: Sukhdeep Kaur MD Date of Service: 01/16/23 Procedure(s): XR chest 2V* [id number] Accession Number(s): [id number] Report Number: [id number] PROCEDURE INFORMATION: Exam: XR Chest Exam date and time: 01/16/2023 2:15 PM Age: 27 years old Clinical indication: Cough and dyspnea TECHNIQUE: Imaging protocol: Radiologic exam of the chest. Views: 2 views. COMPARISON: CR XR chest 2V* [id number] 05/30/2022 3:10 PM FINDINGS: Lungs: Unremarkable. No consolidation. Pleural spaces: Unremarkable. No pleural effusion. No pneumothorax. Heart/Mediastinum: Unremarkable. No cardiomegaly. Bones/joints: Unremarkable. Intraperitoneal space: Right upper abdomen surgical clips. XR/XR chest 2V* [id number] IMPRESSION: No acute findings. Dictated By:Dom Hirsch DOSigned By:Dom Hirsch DOSigned Date/Time:01/16/23 1443 EKG Data EKG 1: I personally reviewed and interpreted this EKG as follows: EKG Interpretation Date: 01/16/23 EKG interpretation time: 13:52 Interpretation: Impression normal sinus rhythm heart rate 88. Normal axis. Nonspecific ST-T changes. Normal [place] interval normal QT interval, normal P waves, normal T waves. Normal QRS. Discharge Plan Discharge Patient Disposition: Home Clinical Impression: Shortness of breath Asthma Qualifiers: Asthma severity: mild Asthma persistence: intermittent Asthma complication type: uncomplicated Qualified Code(s): J45.20 - Mild intermittent asthma, uncomplicated Condition: Stable Prescriptions: New ProAir HFA 90 mcg/actuation HFA aerosol inhaler 2 inh inhalation Q6H PRN (Reason: shortness of breath or wheezing) Qty: 8.5 2 RF Rx Instructions: prn shortness of breath or wheezing prednisone 20 mg tablet 20 mg PO DAILY 3 Days Qty: 3 0RF Rx Instructions: 20mg po daily x 3 days; take with food No Action topiramate 50 mg tablet 50 mg PO BID 30 Days Qty: 60 3RF Rx Instructions: Take one tablet twice daily. medroxyprogesterone [Depo-Provera] 150 mg/mL syringe 150 mg IM .q3 months Qty: 1 3RF prazosin 1 mg capsule 1 mg PO .qhs 30 Days Qty: 30 2RF ibuprofen 800 mg tablet 800 mg PO TID PRN (Reason: pain) Qty: 90 0RF tizanidine 4 mg capsule 4 mg PO Q8H PRN (Reason: muscle spasticity) Qty: 90 1RF hydrocodone-acetaminophen 5-325 mg tablet 1 tab PO Q8H PRN (Reason: pain) 7 Days Qty: 20 0RF (DME) lumbar supports Misc See Rx Instructions .Route Rx Instructions: As directed escitalopram oxalate [Lexapro] 10 mg tablet 10 mg PO DAILY 30 Days Qty: 30 3RF pantoprazole [Protonix] 40 mg tablet,delayed release (DR/EC) 40 mg PO DAILY 30 Days Qty: 30 3RF gabapentin 100 mg capsule 100 mg PO TID 30 Days Qty: 90 3RF hydrochlorothiazide 25 mg tablet 25 mg PO DAILY 30 Days Qty: 30 3RF albuterol sulfate [Ventolin HFA] 90 mcg/actuation HFA aerosol inhaler 2 puff inhalation 6XD PRN (Reason: shortness of breath or wheezing) Qty: 8.5 1RF zonisamide [Zonegran] 100 mg capsule 100 mg PO BID Qty: 60 3RF propranolol 20 mg tablet 20 mg PO BID Qty: 60 5RF ferrous sulfate 325 mg (65 mg iron) tablet 325 mg PO BID 30 Days Qty: 60 3RF folic acid 1 mg tablet 1 mg PO DAILY 30 Days Qty: 30 3RF scopolamine base 1 mg over 3 days patch 3 day 1 patch transdermal Q3D PRN (Reason: nausea and vomiting) Qty: 10 0RF naproxen 500 mg tablet 500 mg PO BID PRN (Reason: pain) Qty: 20 0RF Discharge Orders: Discharge ED (Routine); Ordered 01/16/23 Ordered By: Sukhdeep Kaur Referrals: Mary Kay Blount NP [Primary Care Provider] - Discharge Diet: Usual diet Discharge Activity: Increase activity as tolerated Patient Instructions: Asthma (ED) Activity Restrictions/Additional Instructions: May take albuterol inhaler 1 or 2 puffs every 4-6 hours as needed for cough or wheezing. Start oral prednisone tomorrow with food. COVID test today was negative. Chest x-ray appeared normal. Follow-up with family doctor this week for recheck. Avoid smoking. Coding Level of Care Code ED Psychology Teacher for Jarrod Gunderson
[2023-01-16 14:34] VITALS: BP 128/75; PULSE 83; RESP 16; O2SAT 100
[2023-01-16 15:13] LABS: SARS Covid-2 Antigen negative (Negative)
[2023-01-16] MEDS: predniSONE 20 mg Tablet PO (15:42)
== END 2023-01-16 15:48 | disposition home or self-care (01) ==
PROVIDERS: Emergency Provider Family Medicine; PCP Nurse Practitioner Family
DX: J45.20 Mild intermittent asthma, uncomplicated (principal); Z20.822 Contact with and (suspected) exposure to COVID-19
CPT/HCPCS: 71046; 87426; 93005; 99284; J7512